=== PATIENT | female | born 1985 | race Caucasian/White ===

== ENCOUNTER 2019-03-21 11:34 | Inpatient (IN) | payer MEDICAID ==
[~2019-03-21] VITALS: Ht 162.6 cm; Wt 82.6 kg
[~2019-03-21 11:34] MED LIST: PREN-99 PO
[2019-03-21 11:56] VITALS: BP 115/69; PULSE 75; RESP 18; Ht 162.6 cm; Wt 82.6 kg
[2019-03-21] MEDS ORDERED: LACTATED RINGER'S 1,000 ML IV ONE (15:08)
--- NOTE | 2019-03-21 18:35 | TRIAGE ---
OB Triage Datetime Report Generated by CPN: 03/21/2019 18:35 Datetime: 03/21/2019 18:00 Labor Evaluation Frequency: x4 Monitor Mode: External Duration (sec)2399: 40-60 Quality: Mild Resting Tone [place]: Relaxed Heart Rate FHR Baseline Rate: 125 Monitor Mode: External US FHR Baseline Changes: No Baseline Change Variability: Moderate 6-25 bpm Accelerations: 15X15 Decelerations: None Category: Category I Datetime: 03/21/2019 17:05 Stage of : Antepartum Datetime: 03/21/2019 17:00 Labor Evaluation Frequency: x4 Monitor Mode: External Duration (sec)2399: 50-70 Quality: Mild Resting Tone [place]: Relaxed Contraction Comments: uterine irritability noted Heart Rate FHR Baseline Rate: 120 Monitor Mode: External US FHR Baseline Changes: No Baseline Change Variability: Moderate 6-25 bpm Accelerations: 15X15 Decelerations: Variable Category: Category II Datetime: 03/21/2019 16:00 Labor Evaluation Frequency: x3 Monitor Mode: External Duration (sec)2399: 50-70 Quality: Mild Resting Tone [place]: Relaxed Heart Rate FHR Baseline Rate: 125 Monitor Mode: External US FHR Baseline Changes: No Baseline Change Variability: Moderate 6-25 bpm Accelerations: 15X15 Decelerations: Variable Category: Category II Datetime: 03/21/2019 15:00 Labor Evaluation Frequency: x3 Monitor Mode: External Duration (sec)2399: 50-60 Quality: Mild Resting Tone [place]: Relaxed Contraction Comments: uterine irritability noted Heart Rate FHR Baseline Rate: 130 Monitor Mode: External US FHR Baseline Changes: No Baseline Change Variability: Moderate 6-25 bpm Accelerations: 15X15 Decelerations: None Category: Category I Datetime: 03/21/2019 14:00 Labor Evaluation Frequency: x4 Monitor Mode: External Duration (sec)2399: 50-70 Quality: Mild Resting Tone [place]: Relaxed Contraction Comments: uterine irritability noted Heart Rate FHR Baseline Rate: 130 Monitor Mode: External US FHR Baseline Changes: No Baseline Change Variability: Moderate 6-25 bpm Accelerations: 15X15 Decelerations: None Category: Category I Datetime: 03/21/2019 13:01 Labor Evaluation Frequency: none Monitor Mode: External Resting Tone [place]: Relaxed Contraction Comments: uterine irritability noted Heart Rate FHR Baseline Rate: 125 Monitor Mode: External US FHR Baseline Changes: No Baseline Change Variability: Moderate 6-25 bpm Accelerations: 15X15 Decelerations: None Category: Category I Datetime: 03/21/2019 12:04 Stage of : OB Triage Assessment Type: Triage Maternal Assessment Level of Consciousness: Keenly Alert, Responsive DTR's/Clonus: DTRs 2+; No Clonus Headache: Denies Blurred Vision: No Respiratory Effort: Unlabored; Regular Rhythm; Equal Expansion Breath Sounds, Left: Clear and Equal Breath Sounds, Right: Clear and Equal Nausea/Vomiting: Denies RUQ Epigastric Pain: Denies Lower Extremities Edema: Bilateral Lower Extremities Degree: 1+ Upper Extremities Edema: None Degree: None Facial Edema: None Temperature Route: Oral Fall Risk Assessment History of Falling: (0) No Secondary Diagnosis: (0) No Ambulatory Aid: (0) Bedrest/Nurse Assist IV Therapy: (0) No Gait: (0) Normal/Bedrest/Immobile Mental Status: (0) Oriented to Own Ability Fall Score: 0 Fall Risk Score Definition: No Risk: No action required Labor Evaluation Frequency: none Monitor Mode: External Resting Tone [place]: Relaxed Heart Rate FHR Baseline Rate: 130 Monitor Mode: External US FHR Baseline Changes: No Baseline Change Variability: Moderate 6-25 bpm Accelerations: 15X15 Decelerations: None Category: Category I Pain Assessment Pain Scale: 0 Pain Presence: None/Denies Pain Type: N/A Datetime: 03/21/2019 12:02 Time of Arrival: 03/21/2019 18:24 EGA: 34.4 Arrived By: Ambulatory Arrived From: Office Chief Complaint: s/p fall Movement: Present Contractions: Denies/Absent Rupture of Membranes: Denies Vaginal Bleeding: None Vaginal Discharge: Denies Recent Sexual Intercouse: Yes Abdominal Trauma: Fall Patient Complaints: None Time Provider Notified: 03/21/2019 12:19 Provider Notified: Dr Bella Initial Plan: ELDON MARINO
--- NOTE | 2019-03-21 18:41 | PN ---
Triage Information Date/Time March 21, 2019 Reason for visit: After fall Weeks of Gestation 34 weeks and 4 days /Para 1 para 0 Diabetes: none Hypertention: none Additional information 33-year-old G1, P0 with IUP at 34 weeks and 4 days presented to the hospital after she fell down while she was going toward her OB clinic today. Reports she landed on her hands and knees but unsure if she hit her belly to the ground. She denies any vaginal bleeding, leaking of fluid or contractions. She was sent here for evaluation rule out abruption. Patient noted to have some irritability during monitoring however does not feeling any contractions or cramps. Objective Vital Signs Date Temp Pulse Resp B/P (MAP) Pulse Ox O2 O2 Flow FiO2 Time Delivery Rate 03/21/19 98.5 75 18 115/69 Room Air 11:56 (84) Heart Rate: 130's Heart Rate Comments Category 1 tracing Contractions: < 5 Minutes Apart Exam Irritability with rare contraction noted. Patient has not been feeling. Results/Medications Results 24 hrs Laboratory Tests Test 03/21/19 15:04 Urine Color STRAW Urine Clarity CLEAR Urine pH 7.0 Urine Specific [place] 1.005 Urine Ketones NEGATIVE Urine Nitrite NEGATIVE Urine Bilirubin NEGATIVE Urine Urobilinogen NEGATIVE Urine Leukocyte Esterase NEGATIVE Urine Hemoglobin NEGATIVE Urine Glucose NEGATIVE Urine Total Protein NEGATIVE Imaging Results PROCEDURE: US OB biophysical profile. CLINICAL INDICATION: decreased movements, status post fall TECHNIQUE: Multiple sonographic images of the pelvis were obtained. The images were reviewed on a PACS workstation. COMPARISON: No prior studies are available for comparison. FINDINGS: There is a single live intrauterine gestation. Cardiac activity is present with 131 beats per minute. There is a vertex presentation. The placenta is anterior. There is no evidence of placental abruption. DANIEL = 11.3 cm. Biophysical profile: movement 2/2 tone 2/2. breathing 2/2 DANIEL 2/2 Total 03/21 RPTAT: AA . IMPRESSION: Normal biophysical profile. Disposition: Discharge Assessment/Plan IUP at 34 weeks and 4 days Status post fall No evidence of abruption, PPROM or labor Patient currently more than 4 hours after incident. Ultrasound with no evidence of abruption. Patient is asymptomatic. Uterine irritability noted but patient does not feel them. Patient was discharged home in stable condition. Strict labor precautions kick count abruption precautions discussed with patient in detail. Advised to have a follow-up with OB office tomorrow and return to triage as needed. Patient verbalized understanding. All questions answered to patient's best satisfaction. CORDELL OZUNA MD Mar 21, 2019 18:41
[2019-03-22] MEDS ORDERED: LACTATED RINGER'S 1,000 ML IV SCH (04:05)
[2019-03-22] MEDS ORDERED: PRENATAL VITAMIN PO SCH (09:00)
--- NOTE | 2019-03-22 20:43 | DS ---
Date/Time of Note Date/Time of Note DATE: 03/22/19 TIME: 20:38 Obstetrical Discharge Record Final Diagnosis Final Diagnosis: not delivered Other Final Diagnosis s/p fall on stomach , coming out of bus fell on knee where the scrape jose m and and palm Complications Augmentation: No Induction: No Rupture of Membranes: No Condition on Discharge Physical Assessment Last Vitals: vss afebrile abdomen soft non tender BPP 8/8 placenta ant no evidence of abruptio DANIEL 11.3 currently no c/o pelvic or abdominal pain or vaginal spotting Tracing reviewed CAT I Abdomen and Incision: soft non tender Episiotomy: n/a Calf Tenderness: No Patient Condition: Stable BRENNA JOHNSON MD Mar 22, 2019 20:43
--- NOTE | 2019-03-22 20:47 | PD.PPDC ---
[facility] Discharge Instruction Diagnosis [id number] Final Diagnosis: Brryy0e IUP 34w4d S/P fall Condition Diaty4Pd Patient Condition: Uvooa0e Stable Diet [id number] Diet: Zchxz4p Resume Regular Diet Activity/Restrictions [id number] Activity: [id number] Bedrest [id number] Restrictions: [id number] No Exercising No Lifting Minimize Stair-climbing No Sexual Activity Nothing in the Vagina No [place] Wound/Drain Care Instructions Additional Instructions: f/u with her OB [facility] in case of abdominal pain or vaginal bleeding or any other subjective symptoms concerns BRENNA JOHNSON MD Mar 22, 2019 20:47
--- NOTE | 2019-04-06 12:41 | HP ---
Date/Time of Note Date/Time of Note DATE: 04/06/19 TIME: 12:39 OB - History Hx of Present Free Text/Dictation Date/Time March 25, 2019 Reason for visit: After fall Weeks of Gestation 34 weeks and 4 days /Para 1 para 0 Diabetes: none Hypertention: none Additional information 33-year-old G1, P0 with IUP at 34 weeks and 4 days presented to the hospital after she fell down while she was going toward her OB clinic today. Reports she landed on her hands and knees but unsure if she hit her belly to the ground. She denies any vaginal bleeding, leaking of fluid or contractions. She was sent here for evaluation rule out abruption. Patient noted to have some irritability during monitoring however does not feeling any contractions or cramps. Objective Vital Signs Date Temp Pulse Resp B/P (MAP) Pulse Ox O2 O2 Flow FiO2 Time Delivery Rate 03/21/19 98.5 75 18 115/69 Room Air 11:56 (84) Heart Rate: 130's Heart Rate Comments Category 1 tracing Contractions: < 5 Minutes Apart Exam Irritability with rare contraction noted. Patient has not been feeling. Results/Medications Results 24 hrs Laboratory Tests Test 03/21/19 15:04 Urine Color STRAW Urine Clarity CLEAR Urine pH 7.0 Urine Specific [place] 1.005 Urine Ketones NEGATIVE Urine Nitrite NEGATIVE Urine Bilirubin NEGATIVE Urine Urobilinogen NEGATIVE Urine Leukocyte Esterase NEGATIVE Urine Hemoglobin NEGATIVE Urine Glucose NEGATIVE Urine Total Protein NEGATIVE Imaging Results PROCEDURE: US OB biophysical profile. CLINICAL INDICATION: decreased movements, status post fall TECHNIQUE: Multiple sonographic images of the pelvis were obtained. The images were reviewed on a PACS workstation. COMPARISON: No prior studies are available for comparison. FINDINGS: There is a single live intrauterine gestation. Cardiac activity is present with 131 beats per minute. There is a vertex presentation. The placenta is anterior. There is no evidence of placental abruption. DANIEL = 11.3 cm. Biophysical profile: movement 2/2 tone 2/2. breathing 2/2 DANIEL 2/2 Total 03/21 RPTAT: AA . IMPRESSION: Normal biophysical profile. Disposition: Discharge Assessment/Plan IUP at 34 weeks and 4 days Status post fall No evidence of abruption, PPROM or labor Patient currently more than 4 hours after incident. Ultrasound with no evidence of abruption. Patient is asymptomatic. Uterine irritability noted but patient does not feel them. Patient will be admitted for observateion and close monitoring if Discharge home needs to have a follow up with OB office tomorrow and return to triage as needed. Patient verbalized understanding. All questions answered to patient's best satisfaction. Copies To: Copies To: CORDELL OZUNA MD Mar 21, 2019 18:41 Past Family/Social History * Past Medical, Surgical, Family and Obstetric Histories reviewed from chart. CORDELL OZUNA MD Apr 06, 2019 12:41
== END 2019-03-22 12:47 | disposition home or self-care (01) | DRG 923 ==
LOC: L-D 11:34 → OBT 11:34 → L-D 17:04 → OBT 17:06
PROVIDERS: ADMIT Obstetrics & Gynecology; ATTEND Obstetrics & Gynecology
DX: Z04.1 Encounter for examination and observation following transport accident (principal); Z3A.34 34 weeks gestation of pregnancy
CPT/HCPCS: 36415; 76818; 81003; 96360; 96361; G0463; J7120

== ENCOUNTER 2019-04-19 19:00 | Outpatient (CLI) | payer MEDICAID ==
[~2019-04-19] VITALS: Ht 162.6 cm; Wt 84.0 kg
[2019-04-19 20:13] VITALS: BP 109/64; PULSE 86; RESP 18; Ht 162.6 cm; Wt 84.0 kg
== END 2019-04-19 23:40 | disposition home or self-care (01) ==
LOC: OBT 19:00 → L-D 19:00 → OBT 23:40
PROVIDERS: ATTEND Obstetrics & Gynecology
DX: O60.00 Preterm labor without delivery, unspecified trimester (principal); Z3A.00 Weeks of gestation of pregnancy not specified
CPT/HCPCS: 76818; 84112; G0463

== ENCOUNTER 2019-04-28 10:43 | Inpatient (IN) | payer MEDICAID ==
[~2019-04-28] VITALS: Ht 162.6 cm; Wt 83.0 kg
[~2019-04-28 10:43] MED LIST changes: +ERYT1OIN6 RIGHT EYE; +FLUC150T PO; +NITR-58 PO
[2019-04-28 10:53] VITALS: Ht 162.6 cm; Wt 83.0 kg
[2019-04-28 10:56] VITALS: BP 128/74; PULSE 82; RESP 20
[2019-04-28] MEDS ORDERED: BUTORPHANOL 2 MG INJ IV PRN ×2 (11:30)
[2019-04-28] MEDS ORDERED: METHYLERGONOVINE 0.2 MG INJ IM PRN (11:30)
[2019-04-28] MEDS ORDERED: MISOPROSTOL 200 MCG TAB PR PRN (11:30)
[2019-04-28] MEDS ORDERED: IBUPROFEN 600 MG TAB PO PRN (11:30)
[2019-04-28] MEDS ORDERED: CARBOPROST 250 MCG INJ IM PRN (11:30)
[2019-04-28] MEDS ORDERED: OXYTOCIN 30 UNITS/LR 500 ML IV PRN (11:30)
[2019-04-28] MEDS ORDERED: OXYTOCIN 30 UNITS/LR 500 ML IV SCH ×3 (11:30)
[2019-04-28] MEDS ORDERED: LIDOCAINE 1% (MPF) 30 ML INJ INJ PRN (11:30)
[2019-04-28] MEDS: LACTATED RINGER'S 1,000 ML IV SCH ×2 (12:09→13:17)
[2019-04-28] MEDS ORDERED: FENTAnyl 2MCG/ML-ROPIV 0.2% 100 ML ONE (12:44)
[2019-04-28] MEDS ORDERED: DIPHENHYDRAMINE 50 MG INJ IV PRN (13:00)
[2019-04-28] MEDS ORDERED: FENTAnyl 2MCG/ML-ROPIV 0.2% 100 ML BAG EPI SCH (13:00)
[2019-04-28] MEDS ORDERED: ONDANSETRON 4 MG INJ IV PRN (13:00)
[2019-04-28] MEDS ORDERED: NALOXONE (0.4 MG/ML) INJ IV PRN (13:00)
[2019-04-28] MEDS ORDERED: MINERAL OIL LIGHT 10 ML VIAL TOP ONE (20:00)
[2019-04-29 02:35] VITALS: BP 121/65; PULSE 65; RESP 18
[2019-04-29] MEDS ORDERED: BENZOCAINE 20% 56 ML SPRAY TOP PRN (03:00)
[2019-04-29] MEDS ORDERED: METHYLERGONOVINE 0.2 MG INJ IM PRN (03:00)
[2019-04-29] MEDS ORDERED: LANOLIN HPA 1 PKT TOP PRN (03:00)
[2019-04-29] MEDS ORDERED: OXYTOCIN 30 UNITS/LR 500 ML IV PRN (03:00)
[2019-04-29] MEDS ORDERED: WITCH HAZEL/GLYCERIN PAD PR PRN (03:00)
[2019-04-29] MEDS ORDERED: CARBOPROST 250 MCG INJ IM PRN (03:00)
[2019-04-29] MEDS ORDERED: MISOPROSTOL 200 MCG TAB PR PRN (03:00)
[2019-04-29] MEDS ORDERED: ZOLPIDEM 5 MG TAB PO PRN (03:00)
[2019-04-29] MEDS ORDERED: OXYCODONE/ASPIRIN (4.88/325) TAB PO PRN ×2 (03:00)
[2019-04-29 04:50] VITALS: BP 122/65; PULSE 66; RESP 18
[2019-04-29] MEDS: IBUPROFEN 600 MG TAB PO SCH ×4 (06:01→23:49)
[2019-04-29 08:00] VITALS: BP 97/56; PULSE 66; RESP 19
[2019-04-29] MEDS: SENNA/DOCUSATE NA (8.6MG/50MG) TAB PO SCH ×2 (09:26→21:36)
[2019-04-29 12:34] VITALS: BP 115/61; PULSE 67; RESP 19
[2019-04-29 16:15] VITALS: BP 100/54; PULSE 88; RESP 16
[2019-04-29 19:45] VITALS: BP 115/70; PULSE 84; RESP 18
[2019-04-30 03:54] VITALS: BP 116/59; PULSE 71; RESP 18
[2019-04-30] MEDS: IBUPROFEN 600 MG TAB PO SCH ×3 (05:43→18:16)
[2019-04-30] MEDS: SENNA/DOCUSATE NA (8.6MG/50MG) TAB PO SCH (09:34)
[2019-04-30 10:40] VITALS: BP 103/52; PULSE 64; RESP 18
[2019-04-30] MEDS ORDERED: DIPHTH/TET/ACEL PERTUSS (ADULT) 0.5 ML VIAL IM* ONE (11:30)
[2019-04-30 12:00] VITALS: BP 106/61; PULSE 68; RESP 19
[2019-04-30 17:14] VITALS: BP 120/70; PULSE 71; RESP 18
[2019-05-01] MEDS ORDERED: DIPHTH/TET/ACEL PERTUSS (ADULT) 0.5 ML VIAL IM* ONE (09:00)
== END 2019-04-30 20:50 | disposition home or self-care (01) | DRG 807 ==
LOC: OBT 10:43 → L-D 10:44 → OBT 11:10 → PP1 04-29 02:28
PROVIDERS: ADMIT Obstetrics & Gynecology; ATTEND Obstetrics & Gynecology
PROC: 10E0XZZ Delivery of Products of Conception, External Approach (ICD-10-PCS; principal; 2019-04-28)
PROC: 3E033VJ Introduction of Other Hormone into Peripheral Vein, Percutaneous Approach (ICD-10-PCS; 2019-04-28)
DX: O48.0 Post-term pregnancy (principal); Z37.0 Single live birth; Z3A.40 40 weeks gestation of pregnancy; O66.0 Obstructed labor due to shoulder dystocia
CPT/HCPCS: 62322; 76815; 85025; 85610; 85730; 86592; 86850; 86900; 86901; 87340; 90715; 99464; G0463; J2590; J3010; J7120